=== PATIENT | female | born 1985 | race African-American/Black ===

== ENCOUNTER 2021-03-04 01:08 | Emergency (ER) | payer MEDICAID, OTHER ==
[~2021-03-04] VITALS: Ht 167.6 cm; Wt 160.0 kg
[~2021-03-04 01:08] MED LIST: ALBUTEROL
[2021-03-04 01:19] VITALS: BP 165/109
[2021-03-04] MEDS ORDERED: IPRATROPIUM BROMIDE (0.02%) 0.5MG/2.5ML NEB HHN STA (01:24)
[2021-03-04] MEDS ORDERED: ALBUTEROL (0.083%) 2.5MG/3ML NEB HHN STA (01:24)
[2021-03-04] MEDS ORDERED: METHYLPREDNISOLONE SOD SUCC 125 MG/2 ML VIAL IM STA (01:24)
[2021-03-04] MEDS ORDERED: ALBU18HF2 IH (02:42)
[2021-03-04] MEDS ORDERED: P20 PO (02:42)
== END 2021-03-04 03:21 | disposition home or self-care (01) ==
LOC: ER 01:08
DX: J45.901 Unspecified asthma with (acute) exacerbation (principal); I10 Essential (primary) hypertension
CPT/HCPCS: 94640; 96372; 99283; J2930; Z7610

== ENCOUNTER 2021-09-23 22:14 | Emergency (ER) | payer MEDICAID ==
[~2021-09-23] VITALS: Ht 167.6 cm; Wt 159.0 kg
[~2021-09-23 22:14] MED LIST changes: +ALBU18HF2 IH; +P20 PO
[2021-09-23 22:22] VITALS: BP 178/107
[2021-09-23] MEDS ORDERED: ALBUTEROL (0.083%) 2.5MG/3ML NEB HHN STA (22:25)
[2021-09-23] MEDS ORDERED: PREDNISONE 20MG TABLET PO STA (22:25)
[2021-09-23] MEDS ORDERED: IPRATROPIUM BROMIDE (0.02%) 0.5MG/2.5ML NEB HHN STA (22:25)
[2021-09-23] MEDS ORDERED: LORATADINE 10MG TABLET PO SCH (22:30)
[2021-09-24] MEDS ORDERED: LORA-985 MT (01:08)
[2021-09-24] MEDS ORDERED: ALBU90AE INH (01:08)
== END 2021-09-24 01:15 | disposition home or self-care (01) ==
LOC: ER 22:14
DX: J45.901 Unspecified asthma with (acute) exacerbation (principal); J30.81 Allergic rhinitis due to animal (cat) (dog) hair and dander; Z91.048 Other nonmedicinal substance allergy status
CPT/HCPCS: 94640; 99283; J7512; Z7610